=== PATIENT | female | born 1995 | race African-American/Black ===

== ENCOUNTER 2018-09-11 04:30 | Emergency (ER) | payer SELFPAY ==
[~2018-09-11] VITALS: Ht 167.6 cm; Wt 61.0 kg
[2018-09-11] MEDS ORDERED: KETOROLAC 15MG/ML VIAL IM ONE (06:45)
[2018-09-11 09:44] VITALS: BP 112/58
== END 2018-09-11 10:00 | disposition home or self-care (01) ==
LOC: ER 04:30
DX: S00.83XA Contusion of other part of head, initial encounter (principal); M25.571 Pain in right ankle and joints of right foot; M79.604 Pain in right leg; Y08.89XA Assault by other specified means, initial encounter; Y93.89 Activity, other specified; Y92.89 Other specified places as the place of occurrence of the external cause; Y99.8 Other external cause status
CPT/HCPCS: 70150; 73590; 73610; 73630; 81025; 96372; 99284; J1885